=== PATIENT | male | born 1970 | race Caucasian/White ===

== ENCOUNTER → 2021-05-02 | Day surgery (SDC) | payer BC ==
[~2021-05-02] VITALS: Ht 182.9 cm; Wt 112.0 kg
[~2021-05-02] MED LIST: ALLO300T PO; FLUT1AER7 IH; IV RINGERS,LACTATED 1000ML 1,000 ML IV SCH; MESA250C PO; MONT10TA49 PO; PROPOFOL 10 MG/ML (20ML) VIAL. IV ONE
[2021-05-02 07:09] VITALS: BP 140/83
--- NOTE | 2021-05-02 08:06 | PDOC2 ---
CONSULT Date of Consult Date of Consult DATE: 05/02/21 TIME: 08:00 Reason for Consult Reason for Consult: Crohns ileocolitis Identification/Chief Complaint Chief Complaint Surveillance Crohns ileocolitis History of Present Illness Reason for Visit: 51 yo Male presents for surveillance colonoscopy of Crohns ileo-colitis. He has been on maintenance Pentasa therapy for years in remission. Bowel movements are regular without diarrhea, constipatoin, and/or bleeding. Weight and appetite are stable. No extra-intestinal manifestations of IBD are present at this time .Last colonoscopy was six years ago without pathology. He otherwise is doing well and pino sno additional complaints. Past Medical History Pulmonary: Asthma GI: Inflam bowel disease Past Surgical History Past Surgical History: Hernia Repair Family History Family History Crohns disease father Social History Quit ALCOHOL: occassional Current Medications Current Medications Current Medications Ringer's Solution 1,000 ml @ 50 mls/hr Q20H IV Last administered on 05/02/21at 07:20; Start 05/02/21 at 07:00; Stop 05/02/21 at 18:59 Active Scripts Active Reported Airduo Respiclick 113-14 Mcg (Fluticasone/Salmeterol) 1 Each Aer.pow.ba 1 Puff IH BID 30 Days Allopurinol 300 Mg Tablet 1 Tab PO DAILY Pentasa (Mesalamine) 250 Mg Capsule.er 250 Mg PO DAILY Montelukast Sodium Tablet (Montelukast Sodium) 10 Mg Tablet 10 Mg PO HS Allergies Allergies: Coded Allergies: No Known Drug Allergies (Unverified , 05/02/21) Physical Exam General: Alert, Oriented X3, Cooperative Lungs: Clear to auscultation Heart: Regular rate, Normal S1, Normal S2 Abdomen: Normal bowel sounds, Soft, No tenderness Vitals VITALS Vital Signs Date Time Temp Pulse Resp B/P (MAP) Pulse Ox O2 Delivery O2 Flow Rate FiO2 05/02/21 07:09 97.5 70 20 96 97.5 Assessment/Plan Assessment/Plan Crohns ileo-colitis- surveillance colonoscopy exam for dysplasia is recommended at this time. R/B discussed with patient who is willing to proceed. LOU BARKER MD May 02, 2021 08:06
[2021-05-02 09:15] VITALS: BP 112/59
--- NOTE | 2021-05-05 18:06 | PATHOLOGY ---
[facility] Accession Number: [id number] . 01 Material submitted: . PART A: colon - RIGHT COLON BIOPSY. Modifiers: right PART B: colon - TRANSVERSE COLON BIOPSY. Modifiers: transverse PART C: colon - LEFT COLON BIOPSY. Modifiers: left . 01 Clinical history: . CROHN'S CRC SCREENING . 02 Diagnosis: A. Colon biopsies, right colon: - Segments of colonic mucosa showing no evidence of active chronic destructive colitis or dysplasia. . B. Colon biopsies, transverse colon: - Segments of colonic mucosa showing no evidence of active chronic destructive colitis or dysplasia. . C. Colon biopsies, left colon: - Segments of colonic mucosa showing no evidence of active chronic destructive colitis or dysplasia. (JPM:marleny; 05/05/2021) [facility] [place]/05/20[place] 1718 Local . 02 Comment: Sections of the right colon, transverse colon, and left colon biopsies appear similar and reveal multiple segments of colonic mucosa with occasional mucosal-associated lymphoid aggregates. There is no evidence of an active chronic destructive colitis (Crohn's disease). There is no dysplasia or evidence of malignancy. (JPM:marleny; 05/05/2021) . 02 Electronically signed: . Robert Viramontes MD, Pathologist NPI- [id number] . 01 Gross description: . A. The specimen is received in formalin, labeled "Wan Rojas, right colon BX". Received are multiple segments of pale puga tissue ranging in size from 0.3-0.4 cm in maximum dimension. The specimen is entirely submitted in cassette A1. . B. The specimen is received in formalin, labeled "Rojas, Wan, transverse colon BX". Received are multiple segments of pale puga tissue ranging in size from 0.3-0.5 cm in maximum dimension. The specimen is entirely submitted in cassette B1. . C. The specimen is received in formalin, labeled "Wan Rojas, left colon BX". Received are multiple segments of pale puga tissue ranging in size from 0.3-0.4 cm in maximum dimension. The specimen is entirely submitted in cassette C1. ([facility]; 05/02/2021) NRI/NRI 05/02/2021 1841 Local . 02 Pathologist provided ICD-10: K52.9, Z12.11 . 02 CPT . 338000, [id number], [id number] Specimen Comment: A courtesy copy of this report has been sent to [phone], [phone] Specimen Comment: [id number] Specimen Comment: Report sent to / DR MARTELL Performed at: 01 [facility] [address] [address], [place] [id number] MD Andrew Abdi MD Phone: [phone] Performed at: 02 [facility] [address] [place], [place] [id number] MD Robert Viramontes MD Phone: [phone]
== END | disposition home or self-care (01) ==
LOC: ENDOS 06:47
PROVIDERS: ATTEND Internal Medicine Gastroenterology
DX: K50.80 Crohn's disease of both small and large intestine without complications (principal); K63.89 Other specified diseases of intestine; K64.0 First degree hemorrhoids; Z87.891 Personal history of nicotine dependence; Z72.89 Other problems related to lifestyle; Z98.890 Other specified postprocedural states
CPT/HCPCS: 45380; J2704; 88305